=== PATIENT | female | born 1980 | race Caucasian/White ===

== ENCOUNTER 2018-06-21 18:04 | Emergency (ER) | payer SELFPAY ==
[~2018-06-21] VITALS: Ht 162.6 cm; Wt 54.5 kg
[2018-06-21] MEDS ORDERED: GABA-529 PO (18:24)
[2018-06-21] MEDS ORDERED: VENL50TA44 PO (18:26)
[2018-06-21] MEDS ORDERED: VENL-68 PO (18:30)
[2018-06-21] MEDS ORDERED: LORazepam 1 MG TABLET PO ONE (19:30)
[2018-06-21] MEDS ORDERED: KETOROLAC TROMETHAMINE 30 MG/ML VIAL IM ONE (19:30)
[2018-06-21 20:09] LABS: HCG,QUANTITATIVE < 1 mIU/mL (0-6)
[2018-06-21 20:18] LABS: AMPHET/METH SCREEN,URINE NEGATIVE (NEGATIVE); BARBITURATE SCREEN, URINE NEGATIVE (NEGATIVE); BENZODIAZEPINES SCREEN,URINE POSITIVE (NEGATIVE); CANNABINOID SCREEN,URINE POSITIVE (NEGATIVE); COCAINE SCREEN,URINE NEGATIVE (NEGATIVE); METHADONE SCREEN, URINE NEGATIVE (NEGATIVE); OPIATE SCREEN,URINE NEGATIVE (NEGATIVE)
[2018-06-21 20:19] LABS: PHENCYCLIDINE SCREEN,URINE NEGATIVE (NEGATIVE)
[2018-06-21 21:21] VITALS: BP 132/86
== END 2018-06-21 21:56 | disposition home or self-care (01) ==
LOC: EMS 18:08
DX: F10.239 Alcohol dependence with withdrawal, unspecified (principal); F32.9 Major depressive disorder, single episode, unspecified; F12.90 Cannabis use, unspecified, uncomplicated; F17.210 Nicotine dependence, cigarettes, uncomplicated; Y90.2 Blood alcohol level of 40-59 mg/100 ml
CPT/HCPCS: 36415; 80307; 84702; 96372; 99284; 99406; G0480; J1885